=== PATIENT | female | born 1955 | race Caucasian/White ===

== ENCOUNTER → 2017-06-08 | Outpatient (CLI) | payer BC ==
[~2017-06-08] MED LIST: ALPR-411 PO; ASPI81TA28 PO; ATOR-24 PO; CALCTAB7 PO; CETICHW4 PO; CHOL100010 PO; CYAN10005 PO; GLC/500 PO; OMEG10007 PO; PRLSR20 PO
--- NOTE | 2017-06-09 14:19 | MAMMOGRAPHY REPORT ---
BILATERAL DIGITAL SCREENING MAMMOGRAM TOMOSYNTHESIS WITH CAD: 06/08/2017 CLINICAL HISTORY: Routine screening. Patient has no complaints. TECHNIQUE: Breast tomosynthesis in addition to standard 2D mammography was performed. Current study was also evaluated with a Computer Aided Detection (CAD) system. COMPARISON: Comparison is made to exams dated: 01/24/2016 mammogram, 01/22/2015 mammogram, 08/21/2014 mammogram, 12/18/2013 mammogram, 12/18/2013 aspiration, and 12/06/2013 mammogram - [facility]. BREAST COMPOSITION: The tissue of both breasts is heterogeneously dense, which may obscure small mas ses. FINDINGS: There are multiple bilateral low density subcentimeter circumscribed masses scattered throu ghout each breast, best seen on the tomosynthesis images, most likely representing fluctuating cysts. There are scattered stable benign-appearing calcifications, and stable asymmetry in the medial righ t breast. No new suspicious mass, architectural distortion or cluster of microcalcifications is seen . IMPRESSION: ACR BI-RADS CATEGORY 1: NEGATIVE There is no mammographic evidence of malignancy. A 1 year screening mammogram is recommended. The pa tient will receive written notification of the results. Approximately 10% of breast cancers are not detected with mammography. A negative mammographic report should not delay biopsy if a clinically suggestive mass is present. Delmi Angeles M.D. ay/:06/08/2017 17:37:03 [employer] Stamper: Letitia Cavazos, [facility] letter sent: Normal 1/2 BI-RADS Code: ACR BI-RADS Category 1: Negative
== END | disposition home or self-care (01) ==
LOC: C.MAMM 10:45
PROVIDERS: ATTEND Family Medicine
DX: Z12.31 Encounter for screening mammogram for malignant neoplasm of breast (principal)